=== PATIENT | female | born 1935 | race Caucasian/White ===

== ENCOUNTER 2017-04-16 10:22 | Inpatient (IN) | payer OTHER ==
[~2017-04-16] VITALS: Ht 165.1 cm; Wt 72.1 kg
--- NOTE | ~2017-04-16 | PR ---
[place], [place] [id number] #: [id number] ROOM: 510 DOCTOR: PAULINO BOONE MD BIRTHDATE: [birth year] DOS: 04/19/2017 SUBJECTIVE: The patient is doing fine. She feels much better than yesterday. PHYSICAL EXAMINATION: VITAL SIGNS: Graphic trend shows that she is afebrile, pressure is 124/55, pulse of 89, respirations 20, temperature 98.2. LUNGS: Clear. HEART: Regular. ABDOMEN: Soft. EXTREMITIES: Without any edema. She is sitting in a chair and . Other than some minimal tenderness in the sacral area she is feeling good. ASSESSMENT AND PLAN: 1. Wedge compression fractures of T12, L2; status post vertebroplasty of T12, stable and improved pain. 2. Adult failure to thrive. The patient to go to [facility] today. PAULINO BOONE MD CM:PNTRANS [phone] PAULINO BOONE MD 04/19/17 1529 interface
--- NOTE | ~2017-04-16 | PR ---
[place], [place] PROGRESS NOTE [id number] UNIT #: [id number] ROOM: 528 DOCTOR: PAULINO BOONE MD BIRTHDATE: [birth year] DOS: SUBJECTIVE: The patient is doing fine without any complaint. Denies any chest pains, palpitations, but continues to have a lot of back pain. She did not rest very well. OBJECTIVE: VITAL SIGNS: Graphic trend shows a pressure 142/72, pulse is 76, respirations 18, temperature 97.8. LUNGS: Clear. HEART: Regular. ABDOMEN: Obese. EXTREMITIES: Without any edema. BACK: Tenderness persisted on the lumbar area. MRI noted, discussed with . ASSESSMENT AND PLAN: 1. Vertebral fracture T12-L2, possible vertebroplasty. 2. Acute back pain with lumbago, patient is going to get a PT evaluation and possible placement, so social service will be consulted. Continue pain medication. PAULINO BOONE MD CM:PNTRANS [id number] PAULINO BOONE MD 04/17/17 0911 interface
--- NOTE | ~2017-04-16 | DS ---
[place], [place] DISCHARGE SUMMARY NAME: RAMSES ONEIL [facility] #: [id number] UNIT #: [id number] ROOM: 510 DOCTOR: PAULINO BOONE MD BIRTHDATE: [birth year] DOS: 04/19/2017 HOSPITAL COURSE: The patient is 82 years old, comes in with complaints of sudden onset of back pain. The patient was not sure whether she had a fall or any kind of injury, started developing some pain in the low back and continued to get worse. She does not have any urinary symptoms and neither bladder complaints or bowel complaints. She does not have any fever or chills, any chest pains or palpitations. PAST MEDICAL HISTORY: Significant for anxiety. She was seen in the Emergency Room, was admitted with diagnosis of compression fractures. After admission had an MRI, which showed vertebral wedge fracture of the T12 and L2. The patient was placed on pain medication, admitted to [facility], urine culture was done to rule out urinary tract infection. This has come back negative. did see the patient and vertebroplasty was done of T12 and she was also placed on low dose steroids for lumbar disk disease with radiculopathy. The patient's pain has improved remarkably this morning, and the patient is to be discharged to [facility]. Social service has found a bed for her at the care home, insurance has already certified her to go. DISCHARGE MEDICATIONS: [place] 5 twice a day p.r.n. for pain, [place] 500 twice a day, Lidoderm patch for local application, prednisone tapering dose, metformin 500 b.i.d., losartan 100 daily, Coreg 3.125 b.i.d., lorazepam 1 mg twice a day. The patient will need a bone density done as an outpatient. DIET: Regular. PAULINO BOONE MD CM:DISCHARG [id number] PAULINO BOONE MD 04/19/17 1528 interface
--- NOTE | ~2017-04-16 | WRIGHTHP ---
[place], [place] PATIENT HISTORY AND PHYSICAL EXAM NAME: RAMSES ONEIL [facility] #: [id number] UNIT #: [id number] ROOM: 528 DOCTOR: PAULINO BOONE MD BIRTHDATE: [birth year] DOS: HISTORY OF PRESENT ILLNESS: The patient is an 82 years old. The patient comes in with complaints of acute back pain. The patient states that she noted some pain last week and it continued to progress, so finally this morning, the pain was so severe, so she decided to call Dr. Lockhart's office, who advised her to go to the Emergency Room. She does not have any urinary symptoms, not have any fever or chills, does not have any abdominal pain, nausea, any emesis. She does not have a history of any injury. She lives at home with her son who was in his 40s. 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 PAST MEDICAL HISTORY: Significant for, 1. Type 2 diabetes mellitus, insulin dependent 2. Benign hypertension. PAST SURGICAL HISTORY: She has history of hemorrhoidectomy done in the past. MEDICATIONS: She is on Coreg, metformin, lorazepam and losartan. SOCIAL HISTORY: Nonsmoker, does not use any alcohol. She lives at home with her son. She has 6 children, 3 of the kids , multiple illnesses recently. PHYSICAL EXAMINATION: VITAL SIGNS: Graphic trend shows a pressure of 150/88, pulse of 90, respirations 18 and temperature 97.7. LUNGS: Diminished breath sounds, clear. HEART: Regular. ABDOMEN: Soft, nontender. EXTREMITIES: Without any edema. She is able to move all four extremities. Examination of the back shows some minimal tenderness across the lumbosacral area, more in the paravertebral area of L3, L4 and L5. LABORATORY DATA: White cell count 8.3, hemoglobin 13.8 and hematocrit 39.9. Comprehensive glucose 165, BUN 14 and creatinine 0.72. Electrolytes were normal. CT of the abdomen and pelvis shows lumbar disk disease, status post cholecystectomy, no aneurysm, 5 mm left renal stone. Lumbar spine x-ray shows age indeterminate T12-L2 fracture. Urinalysis 2+ bacteria, 3+ leukocyte esterase. ASSESSMENT AND PLAN: 1. Acute low back pain, lumbago, without any history of recent injury. CT of the abdomen shows lumbar disk disease with possible radiculopathy. We will go ahead and arrange for an MRI. The possibilities that the patient has compression fracture of the lumbosacral vertebrae. We will add pain medications, both p.o. as well as topical preparations. Physical therapy/occupational therapy consultation and social service for possible short term placement for correction rehabilitation. 2. Possibility of urinary tract infection. Urine culture will be sent and the patient is placed on antibiotics. 3. Type 2 diabetes mellitus, insulin dependent. Blood sugars to be checked [place], [place] PATIENT HISTORY AND PHYSICAL EXAM NAME: RAMSES ONEIL [facility] #: [id number] UNIT #: [id number] ROOM: 528 DOCTOR: PAULINO BOONE MD BIRTHDATE: [birth year] twice daily, coverage scale ordered. PAULINO BOONE MD CM:HISPHYS:PATIENT HISTORY AND PHYSICAL EXAMINATION [phone] PAULINO BOONE MD 04/16/17 1525 interface
--- NOTE | ~2017-04-16 | PR ---
[place], [place] PROGRESS NOTE [facility] [id number] UNIT #: [id number] ROOM: 510 DOCTOR: PAULINO BOONE MD BIRTHDATE: [birth year] DOS: SUBJECTIVE: The patient is not having any new complaints. She is sitting up in her chair as minimal back pain. OBJECTIVE: VITAL SIGNS: Graphic trend shows a pressure of 152/80, pulse of 85, respirations 20, temperature 98.1. LUNGS: Diminished breath sounds, clear. HEART: Regular. ABDOMEN: Soft, scaphoid. EXTREMITIES: Without any edema. Some diffuse tenderness in the low back. ASSESSMENT AND PLAN: 1. Acute wedge compression fractures of T12 and L2, status post vertebroplasty of T12. 2. Adult failure to thrive, awaiting placement to a [facility]. PT/OT evaluation is being performed. 3. Chronic degenerative disk disease with central canal stenosis of L4-L5 with some radiculopathy, would benefit from a low dose of steroids. PAULINO BOONE MD CM:PNTRANS [phone] PAULINO BOONE MD 04/18/17 1130 interface
[2017-04-16 11:24] VITALS: BP 178/82
[2017-04-16] MEDS ORDERED: CARVEDILOL3.125 MG PO (11:34)
[2017-04-16] MEDS ORDERED: COZAAR100 MG PO (11:34)
[2017-04-16] MEDS ORDERED: METFORMIN500 MG PO (11:34)
[2017-04-16] MEDS ORDERED: ATIVAN1 MG PO (11:35)
[2017-04-16 11:47] LABS: BASO % 0.2 % (0.0-1.0); EOS # 0.1 10*3/uL (0.0-0.4); EOS % 0.6 % (1.0-4.0); HEMATOCRIT 39.9 % (37.0-47.0); HEMOGLOBIN 13.8 g/dl (12.0-16.0); LYMPH # 1.4 10*3/uL (1.3-4.4); LYMPH % 16.9 % (27.0-41.0); MEAN CELL VOLUME 87.1 fl (81.0-99.0); MEAN CORPUSCULAR HGB 30.1 pg (27.0-31.0); MEAN CORPUSCULAR HGB CONC 34.6 g/dl (33.0-37.0); MEAN PLATELET VOLUME 10.3 fl (9.6-12.3); MONO # 0.5 10*3/uL (0.1-1.0); MONO % 6.4 % (3.0-9.0); NEUT # 6.2 10*3/uL (2.3-7.9); NEUT % 75.4 % (47.0-73.0); PLATELET COUNT AUTOMATED 163 10*3/uL (130-400); RED BLOOD COUNT 4.58 10*6/uL (4.10-5.10); RED CELL DISTRI WIDTH 12.6 % (0-14.5); WHITE BLOOD COUNT 8.3 10*3/uL (4.8-10.8)
[2017-04-16 11:52] VITALS: BP 150/88
[2017-04-16 11:54] LABS: INTERNATIONAL NORM RATIO 1.1 (2.0-3.5)
[2017-04-16 12:06] LABS: ALBUMIN 3.3 gm/dl (3.1-4.5); ALKALINE PHOSPHATASE 92 U/L (45-117); BUN 14 mg/dl (7-24); CHLORIDE 101 mmol/L (98-107); CPK 46 U/L (26-192); CREATININE 0.72 mg/dL (0.55-1.02); LDH 167 U/L (84-246); MAGNESIUM 2.1 mg/dL (1.5-2.1); SGOT/AST 20 IU/L (3-35); SGPT/ALT 22 U/L (12-78); SODIUM 134 mmol/L (136-145); TOTAL PROTEIN 7.1 gm/dL (6.4-8.2)
[2017-04-16 12:07] LABS: CKMB 0.6 ng/ml (0.5-3.6); TROPONIN I 0.017 ng/ml (<0.045)
[2017-04-16 13:39] LABS: BILIRUBIN NEGATIVE (NEGATIVE); BLOOD TRACE-LYSED (NEGATIVE); CLARITY SL CLOUDY (CLEAR); COLOR YELLOW (YELLOW); GLUCOSE NEGATIVE (NEGATIVE); KETONE TRACE (NEGATIVE); LEUKO ESTERASE 3+ (NEGATIVE); NITRITE NEGATIVE (NEGATIVE); UROBILINOGEN 0.2 E.U./dl (0.2-1.0)
[2017-04-16 13:47] LABS: BACTERIA 2+; EPITHELIAL CELLS 21-30; WBC 21-30 wbc/hpf (0-5)
[2017-04-16 16:40] VITALS: BP 147/73
[2017-04-16 20:50] VITALS: BP 142/72
[2017-04-17] VITALS (9 sets, daily range): BP systolic 113–171; BP diastolic 64–100
[2017-04-18] VITALS: BP 118/60
[2017-04-18 08:00] VITALS: BP 152/80
[2017-04-18 12:00] VITALS: BP 118/83
[2017-04-18 16:56] VITALS: BP 148/79
[2017-04-18 20:00] VITALS: BP 117/47
[2017-04-19] VITALS: BP 124/55
[2017-04-19 08:00] VITALS: BP 128/66
[2017-04-19] MEDS ORDERED: Lidoderm 5% Patch T (08:24)
[2017-04-19] MEDS ORDERED: PREDNISONE5 MG PO (08:24)
[2017-04-19] MEDS ORDERED: Oscal,Oyster S500 MG PO (08:24)
[2017-04-19] MEDS ORDERED: NORCO 5/325 PO (08:24)
[2017-04-19] MEDS ORDERED: ATIVAN1 MG PO (08:30)
== END 2017-04-19 12:00 | disposition other institution (70) | DRG 516 ==
LOC: ED 10:22 → EDHOLD 14:02 → 5E 14:02
PROVIDERS: Physician Assistant; ADMIT Internal Medicine
PROC: 0PU43JZ Supplement Thoracic Vertebra with Synthetic Substitute, Percutaneous Approach (ICD-10-PCS; principal; 2017-04-16)
DX: M48.54XA Collapsed vertebra, not elsewhere classified, thoracic region, initial encounter for fracture (principal); N39.0 Urinary tract infection, site not specified; E11.9 Type 2 diabetes mellitus without complications; I10 Essential (primary) hypertension; F41.9 Anxiety disorder, unspecified; M51.16 Intervertebral disc disorders with radiculopathy, lumbar region; R62.7 Adult failure to thrive; M48.06 Spinal stenosis, lumbar region; Z66 Do not resuscitate; Z51.5 Encounter for palliative care; Z79.899 Other long term (current) drug therapy; Z90.49 Acquired absence of other specified parts of digestive tract; M48.56XA Collapsed vertebra, not elsewhere classified, lumbar region, initial encounter for fracture; E66.9 Obesity, unspecified

== ENCOUNTER → 2017-05-08 | Outpatient (CLI) | payer OTHER ==
[~2017-05-08] MED LIST: ATIVAN1 MG PO; CARVEDILOL3.125 MG PO; COZAAR100 MG PO; Lidoderm 5% Patch T; METFORMIN500 MG PO; NORCO 5/325 PO; Oscal,Oyster S500 MG PO; PREDNISONE5 MG PO
== END | disposition home or self-care (01) ==
LOC: RAD 02:05
DX: M81.0 Age-related osteoporosis without current pathological fracture (principal); Z78.0 Asymptomatic menopausal state

== ENCOUNTER 2017-10-22 12:18 | Emergency (ER) | payer OTHER ==
[~2017-10-22] VITALS: Wt 68.0 kg
[2017-10-22 12:46] LABS: BASO % 0.5 % (0.0-1.0); EOS # 0.1 10*3/uL (0.0-0.4); EOS % 1.2 % (1.0-4.0); HEMATOCRIT 40.1 % (37.0-47.0); HEMOGLOBIN 13.5 g/dl (12.0-16.0); LYMPH # 1.8 10*3/uL (1.3-4.4); LYMPH % 20.9 % (27.0-41.0); MEAN CELL VOLUME 91.8 fl (81.0-99.0); MEAN CORPUSCULAR HGB 30.9 pg (27.0-31.0); MEAN CORPUSCULAR HGB CONC 33.7 g/dl (33.0-37.0); MEAN PLATELET VOLUME 10.5 fl (9.6-12.3); MONO # 0.5 10*3/uL (0.1-1.0); MONO % 5.8 % (3.0-9.0); NEUT # 6.2 10*3/uL (2.3-7.9); NEUT % 71.4 % (47.0-73.0); PLATELET COUNT AUTOMATED 166 10*3/uL (130-400); RED BLOOD COUNT 4.37 10*6/uL (4.10-5.10); RED CELL DISTRI WIDTH 12.7 % (0-14.5); WHITE BLOOD COUNT 8.7 10*3/uL (4.8-10.8)
[2017-10-22 12:58] LABS: BUN 21 mg/dl (7-24); CHLORIDE 106 mmol/L (98-107); CREATININE 0.92 mg/dL (0.55-1.02); POTASSIUM 4.3 mmol/L (3.5-5.1); SODIUM 140 mmol/L (136-145)
[2017-10-22 14:38] LABS: BILIRUBIN NEGATIVE (NEGATIVE); BLOOD TRACE-INTACT (NEGATIVE); CLARITY CLEAR (CLEAR); COLOR YELLOW (YELLOW); GLUCOSE 2+ (NEGATIVE); KETONE NEGATIVE (NEGATIVE); LEUKO ESTERASE TRACE (NEGATIVE); NITRITE NEGATIVE (NEGATIVE); PH 5.5 (5.0-9.0); SPECIFIC GRAVITY 1.015 (1.005-1.030); UROBILINOGEN 0.2 E.U./dl (0.2-1.0)
[2017-10-22 14:57] LABS: BACTERIA 1+; EPITHELIAL CELLS 20-25
== END 2017-10-22 15:26 | disposition home or self-care (01) ==
LOC: ED 12:18
PROVIDERS: Emergency Medicine
DX: R41.3 Other amnesia (principal); N39.0 Urinary tract infection, site not specified; R41.82 Altered mental status, unspecified; Z79.899 Other long term (current) drug therapy

== ENCOUNTER 2017-11-14 20:20 | Inpatient (IN) | payer OTHER ==
[~2017-11-14] VITALS: Ht 165 cm; Wt 60.6 kg
--- NOTE | ~2017-11-14 | WRIGHTHP ---
[place], [place] PATIENT HISTORY AND PHYSICAL EXAM NAME: RAMSES ONEIL [facility] #: [id number] UNIT #: [id number] ROOM: 421 DOCTOR: MIKE KINCAID MD BIRTHDATE: [birth year] DOS: 11/14/2017 HISTORY OF PRESENT ILLNESS: The patient is an 82-year-old female with a past medical history of: 1. Generalized anxiety disorder. 2. Alzheimer's type dementia. 3. Compression fractures at T12 and L2, status post vertebroplasty. 4. History of benign essential hypertension. 5. Type 2 diabetes mellitus. The patient presented to the Emergency Department with 5 days of recurrent nausea and vomiting and she was getting weaker by the day. The patient was treated as an outpatient, but she failed treatment and was admitted to the hospital for dehydration, ambulatory dysfunction, and progressive weakness. The patient was unable to eat much at home, but had no diarrhea. The patient was found to have leukocytosis on blood counts, and she was recommended for admission for failed outpatient treatment and put on a monitored floor. After admission, the patient started feeling better. Nausea and vomiting has resolved and she is starting to feel stronger. No complaints of any chest pain, shortness of breath. REVIEW OF SYSTEMS: LUNGS: No increasing shortness of breath. GASTROINTESTINAL: The patient had persistent nausea, vomiting at home. CARDIOVASCULAR: No chest pains or palpitations. FAMILY HISTORY: Noncontributory. SOCIAL HISTORY: The patient lives at home. Her family helps her. She denies smoking cigarettes, alcohol and drug abuse. PHYSICAL EXAMINATION: GENERAL APPEARANCE: The patient is alert and oriented x 3. Generalized weakness. VITAL SIGNS: Blood pressure 125/47, heart rate 74 beats per minute, breathing 20 times per minute, temperature 98.2 degrees Fahrenheit. HEENT AND NECK: Extraocular movements are intact. Sclerae are anicteric. Oral mucosa is moist and clean. No obvious facial weakness. Neck is supple without any lymphadenopathy. No thyromegaly. No JVD. No carotid arterial bruits. LUNGS: Clear to auscultation. No wheezing. No rhonchi. CARDIOVASCULAR SYSTEM: Heart rate is regular in rate and rhythm. S1 and S2 normally audible. No significant murmur or any other abnormal cardiac sounds. ABDOMEN: Soft, nontender. No obvious organomegaly. Bowel sounds are present. No obvious herniation. EXTREMITIES: Without significant cyanosis or edema. Warm to touch. CENTRAL NERVOUS SYSTEM: Alert and oriented x 3. Cranial nerves II-XII are intact. Speech is normal. The patient is able to move all extremities. Normal muscle strength. Deep tendon reflexes are equal on both sides. Plantars were downgoing. [place], [place] PATIENT HISTORY AND PHYSICAL EXAM [id number] UNIT #: [id number] ROOM: 421 DOCTOR: MIKE KINCAID MD BIRTHDATE: [birth year] LABORATORY DATA: Normal serum electrolytes now, but at admission, the patient's BUN and creatinine was elevated to 20 and 1.25. Chest x-ray without acute abnormality. White cell count of 15,500. IMPRESSION: 1. The patient with acute dehydration, hypovolemia, treated with hydration with normal saline and the patient started tolerating diet. The patient had nausea, vomiting for about 5 days at home prior to coming to the hospital. The patient's metformin has been on hold, and she was kept on a no concentrated sweet diet and she started feeling better. 2. Old age, adult failure to thrive with difficulty with walking. The patient working with physical therapy. 3. Benign essential hypertension with controlled blood pressures. 4. Generalized anxiety disorder to be followed and treated. 5. Type 2 diabetes mellitus. Blood sugars to be monitored and treated accordingly. The patient's metformin has been stopped because of dehydration and nausea and vomiting. 6. Compression fractures at T12 and L2 with chronic back pains controlled with [place]. MIKE KINCAID MD CM:HISPHYS:PATIENT HISTORY AND PHYSICAL EXAMINATION [phone] MIKE KINCAID MD 11/15/171840 interface
--- NOTE | ~2017-11-14 | DS ---
[place], [place] DISCHARGE SUMMARY NAME: RAMSES ONEIL [facility] #: [id number] UNIT #: [id number] ROOM: 421 DOCTOR: MIEK KINCAID MD BIRTHDATE: [birth year] DOS: 11/16/2017 DISCHARGE DIAGNOSES: 1. The patient with nausea, vomiting, and dehydration with hypovolemia and failed outpatient treatment, was admitted to [facility]. Her metformin was stopped, and she was hydrated with normal saline. The patient was kept on a no concentrated sweet diet when she started tolerating diet. The patient's blood sugars had normalized without metformin, so the medicine has been discontinued. 2. Old age, adult failure to thrive with difficulty with walking. The patient worked with physical therapy and she is ambulating better now and feeling stronger. 3. Benign essential hypertension with controlled blood pressures. 4. Chronic back pains with compression fractures at T12 and L2. The patient had a T12 vertebroplasty. 5. Type 2 diabetes mellitus with well controlled blood sugars now without metformin. 6. Late onset Alzheimer's type dementia and some forgetfulness, mental status is stable. 7. Generalized anxiety disorder, treated and controlled. LABORATORY DATA: The patient's lactic acid level was elevated at 3.6 at admission and BUN and creatinine elevated to 1.25 and 20, but both of them have normalized with hydration with normal saline. DISCHARGE MANAGEMENT: Losartan 100 mg a day, Coreg 3.125 mg b.i.d., omeprazole 20 mg a day, lorazepam 1 mg b.i.d. p.r.n. for anxiety, Vicodin one tablet at bedtime p.r.n. for back pains. MIKE KINCAID MD CM:DISCHARG [phone] MIKE KINCAID MD 11/16/171958 interface
[2017-11-14 20:25] VITALS: BP 189/80
[2017-11-14] MEDS ORDERED: CALCIUM + D3 E1 EACH PO (20:51)
[2017-11-14] MEDS ORDERED: MOBIC7.5 MG PO (20:51)
[2017-11-14] MEDS ORDERED: ARICEPT5 M1 PO (20:52)
[2017-11-14 20:53] LABS: BILIRUBIN NEGATIVE (NEGATIVE); BLOOD NEGATIVE (NEGATIVE); CLARITY SL CLOUDY (CLEAR); COLOR YELLOW (YELLOW); GLUCOSE NEGATIVE (NEGATIVE); KETONE NEGATIVE (NEGATIVE); LEUKO ESTERASE 1+ (NEGATIVE); NITRITE NEGATIVE (NEGATIVE); PH 7.5 (5.0-9.0); UROBILINOGEN 0.2 E.U./dl (0.2-1.0)
[2017-11-14] MEDS ORDERED: FOSAMAX70 M1 PO (20:53)
[2017-11-14 20:54] LABS: BASO % 0.1 % (0.0-1.0); EOS % 0.3 % (1.0-4.0); HEMATOCRIT 41.1 % (37.0-47.0); HEMOGLOBIN 14.3 g/dl (12.0-16.0); LYMPH # 2.1 10*3/uL (1.3-4.4); LYMPH % 13.6 % (27.0-41.0); MEAN CELL VOLUME 88.2 fl (81.0-99.0); MEAN CORPUSCULAR HGB 30.7 pg (27.0-31.0); MEAN CORPUSCULAR HGB CONC 34.8 g/dl (33.0-37.0); MEAN PLATELET VOLUME 10.6 fl (9.6-12.3); MONO % 6.7 % (3.0-9.0); NEUT # 12.2 10*3/uL (2.3-7.9); NEUT % 78.9 % (47.0-73.0); PLATELET COUNT AUTOMATED 187 10*3/uL (130-400); RED BLOOD COUNT 4.66 10*6/uL (4.10-5.10); RED CELL DISTRI WIDTH 12.2 % (0-14.5); WHITE BLOOD COUNT 15.5 10*3/uL (4.8-10.8)
[2017-11-14 21:08] LABS: BACTERIA 2+
[2017-11-14 21:09] LABS: RBC 0-2 rbc/hpf (0-2)
[2017-11-14 21:36] LABS: ACT PARTIAL THROMBO TIME 24.2 SECONDS (20.8-31.5); INTERNATIONAL NORM RATIO 1.1 (2.0-3.5)
[2017-11-14 21:42] LABS: ALBUMIN 3.5 gm/dl (3.1-4.5); ALKALINE PHOSPHATASE 46 U/L (45-117); BUN 20 mg/dl (7-24); CHLORIDE 97 mmol/L (98-107); CREATININE 1.25 mg/dL (0.55-1.02); LIPASE 135 U/L (73-393); SGOT/AST 25 IU/L (3-35); SGPT/ALT 21 U/L (12-78); SODIUM 133 mmol/L (136-145); TOTAL PROTEIN 6.6 gm/dL (6.4-8.2)
[2017-11-14 21:43] LABS: TROPONIN I < 0.015 ng/ml (<0.045)
[2017-11-14 22:18] VITALS: BP 160/71
[2017-11-14 22:24] VITALS: BP 166/80
[2017-11-14 22:46] VITALS: BP 174/54
[2017-11-14] MEDS ORDERED: MAPAP EXTRA ST500 M1 PO (23:01)
[2017-11-14] MEDS ORDERED: NORCO 5-325 TA1 EACH PO (23:04)
[2017-11-15] VITALS: BP 180/66
[2017-11-15 06:21] LABS: BUN 18 mg/dl (7-24); CHLORIDE 104 mmol/L (98-107); POTASSIUM 4.2 mmol/L (3.5-5.1); SODIUM 138 mmol/L (136-145)
[2017-11-15 08:00] VITALS: BP 150/60
[2017-11-15 12:00] VITALS: BP 146/68
[2017-11-15 16:00] VITALS: BP 125/47
[2017-11-15 20:00] VITALS: BP 134/52
[2017-11-15 20:24] VITALS: BP 161/65
[2017-11-16] VITALS: BP 131/59
[2017-11-16 08:00] VITALS: BP 164/60
[2017-11-16 12:00] VITALS: BP 156/62
[2017-11-16 16:00] VITALS: BP 147/74
== END 2017-11-16 18:30 | disposition home or self-care (01) | DRG 641 ==
LOC: ED 20:20 → 4E 22:12 → EDHOLD 22:12 → 4E 22:22
PROVIDERS: Internal Medicine; Physician Assistant
DX: E86.0 Dehydration (principal); E86.1 Hypovolemia; E87.2 Acidosis; E11.9 Type 2 diabetes mellitus without complications; G30.1 Alzheimer's disease with late onset; F02.80 Dementia in other diseases classified elsewhere, unspecified severity, without behavioral disturbance, psychotic disturbance, mood disturbance, and anxiety; D72.829 Elevated white blood cell count, unspecified; N28.9 Disorder of kidney and ureter, unspecified; K21.9 Gastro-esophageal reflux disease without esophagitis; F41.1 Generalized anxiety disorder; G89.29 Other chronic pain; I10 Essential (primary) hypertension; R62.7 Adult failure to thrive; R26.2 Difficulty in walking, not elsewhere classified; M54.9 Dorsalgia, unspecified; Z87.81 Personal history of (healed) traumatic fracture; Z90.710 Acquired absence of both cervix and uterus; Z79.899 Other long term (current) drug therapy

== ENCOUNTER 2017-11-19 16:32 | Emergency (ER) | payer OTHER ==
[~2017-11-19] VITALS: Ht 165.1 cm; Wt 66.7 kg
[~2017-11-19 16:32] MED LIST changes: +ARICEPT5 M1 PO; +CALCIUM + D3 E1 EACH PO; +FOSAMAX70 M1 PO; +MAPAP EXTRA ST500 M1 PO; +MOBIC7.5 MG PO; +NORCO 5-325 TA1 EACH PO
[2017-11-19 17:20] LABS: BASO % 0.2 % (0.0-1.0); EOS % 0.4 % (1.0-4.0); HEMATOCRIT 40.5 % (37.0-47.0); HEMOGLOBIN 13.8 g/dl (12.0-16.0); LYMPH # 1.6 10*3/uL (1.3-4.4); LYMPH % 16.7 % (27.0-41.0); MEAN CORPUSCULAR HGB 30.7 pg (27.0-31.0); MEAN CORPUSCULAR HGB CONC 34.1 g/dl (33.0-37.0); MEAN PLATELET VOLUME 10.4 fl (9.6-12.3); MONO # 0.3 10*3/uL (0.1-1.0); MONO % 3.6 % (3.0-9.0); NEUT # 7.3 10*3/uL (2.3-7.9); NEUT % 78.7 % (47.0-73.0); PLATELET COUNT AUTOMATED 157 10*3/uL (130-400); RED CELL DISTRI WIDTH 12.2 % (0-14.5); WHITE BLOOD COUNT 9.3 10*3/uL (4.8-10.8)
[2017-11-19 17:29] LABS: BILIRUBIN NEGATIVE (NEGATIVE); BLOOD NEGATIVE (NEGATIVE); CLARITY CLEAR (CLEAR); COLOR YELLOW (YELLOW); GLUCOSE TRACE (NEGATIVE); KETONE NEGATIVE (NEGATIVE); LEUKO ESTERASE NEGATIVE (NEGATIVE); NITRITE NEGATIVE (NEGATIVE); PH 6.5 (5.0-9.0); UROBILINOGEN 0.2 E.U./dl (0.2-1.0)
[2017-11-19 17:40] LABS: ALBUMIN 3.8 gm/dl (3.1-4.5); ALKALINE PHOSPHATASE 53 U/L (45-117); BUN 16 mg/dl (7-24); CHLORIDE 103 mmol/L (98-107); CREATININE 0.73 mg/dL (0.55-1.02); SGOT/AST 30 IU/L (3-35); SGPT/ALT 35 U/L (12-78); SODIUM 139 mmol/L (136-145); TOTAL PROTEIN 6.8 gm/dL (6.4-8.2)
[2017-11-19 17:43] LABS: EPITHELIAL CELLS 0-2
== END 2017-11-19 19:53 | disposition home or self-care (01) ==
LOC: ED 16:32
PROVIDERS: Nurse Practitioner Family
DX: A08.4 Viral intestinal infection, unspecified (principal); F17.200 Nicotine dependence, unspecified, uncomplicated; Z90.710 Acquired absence of both cervix and uterus; Z98.890 Other specified postprocedural states; Z79.899 Other long term (current) drug therapy

== ENCOUNTER → 2017-11-21 | Outpatient (CLI) | payer OTHER | END | disposition home or self-care (01) | LOC: LAB 10:42 | DX: R78.81 Bacteremia (principal) ==

== ENCOUNTER → 2017-12-05 | Outpatient (CLI) | payer OTHER | END | disposition home or self-care (01) | LOC: MRI 10:40 | DX: F03.90 Unspecified dementia, unspecified severity, without behavioral disturbance, psychotic disturbance, mood disturbance, and anxiety (principal) ==

== ENCOUNTER → 2020-03-25 | Outpatient (CLI) | payer OTHER | END | disposition home or self-care (01) | LOC: US 10:52 | DX: I51.7 Cardiomegaly (principal); R22.43 Localized swelling, mass and lump, lower limb, bilateral ==

== ENCOUNTER 2022-12-01 10:35 | Inpatient (IN) | payer MEDICARE ==
[~2022-12-01] VITALS: Ht 160 cm; Wt 68.7 kg
[2022-12-01 10:53] LABS: BILIRUBIN Negative (Negative); BLOOD Negative (Negative); CLARITY Clear (Clear); COLOR Yellow (Yellow); GLUCOSE Negative (Negative); KETONE Negative (Negative); LEUKO ESTERASE Trace (Negative); NITRITE Negative (Negative); SPECIFIC GRAVITY 1.015 (1.001-1.030)
[2022-12-01 10:58] LABS: BASO % 0.4 % (0.0-1.0); EOS # 0.1 10*3/uL (0.0-0.4); EOS % 1.6 % (1.0-4.0); HEMATOCRIT 43.1 % (37.0-47.0); LYMPH # 1.9 10*3/uL (1.3-4.4); LYMPH % 24.4 % (27.0-41.0); MEAN CELL VOLUME 97.5 fl (81.0-99.0); MEAN CORPUSCULAR HGB 32.6 pg (27.0-31.0); MEAN CORPUSCULAR HGB CONC 33.4 g/dl (33.0-37.0); MONO # 0.5 10*3/uL (0.1-1.0); MONO % 6.7 % (3.0-9.0); NEUT # 5.3 10*3/uL (2.3-7.9); NEUT % 66.5 % (47.0-73.0); PLATELET COUNT AUTOMATED 157 10*3/uL (130-400); RED BLOOD COUNT 4.42 10*6/uL (4.10-5.10); RED CELL DISTRI WIDTH 14.3 % (0-14.5); WHITE BLOOD COUNT 7.9 10*3/uL (4.8-10.8)
[2022-12-01 11:04] LABS: WBC 16-20 wbc/hpf (0-5)
[2022-12-01 11:15] VITALS: BP 174/59
[2022-12-01 11:16] LABS: ALKALINE PHOSPHATASE 79 U/L (46-116); BUN 14 mg/dl (9-23); CHLORIDE 106 mmol/L (98-107); LIPASE 34 U/L (12-53); POTASSIUM 3.7 mmol/L (3.4-5.1); SGPT/ALT 14 U/L (10-49); TOTAL PROTEIN 6.3 gm/dL (6.0-8.0)
[2022-12-01 11:17] LABS: ACT PARTIAL THROMBO TIME 26.9 SECONDS (20.0-32.1); INTERNATIONAL NORM RATIO 1.1 (2.0-3.5)
[2022-12-01 11:50] VITALS: BP 168/80
[2022-12-01 13:40] VITALS: BP 183/58
[2022-12-01 13:52] VITALS: BP 183/58
[2022-12-01 16:00] VITALS: BP 156/51
[2022-12-01 20:00] VITALS: BP 176/57
[2022-12-02] VITALS: BP 119/65
[2022-12-02 06:38] LABS: BASO % 0.3 % (0.0-1.0); EOS # 0.2 10*3/uL (0.0-0.4); EOS % 1.7 % (1.0-4.0); HEMATOCRIT 44.2 % (37.0-47.0); LYMPH % 22.6 % (27.0-41.0); MEAN CELL VOLUME 95.7 fl (81.0-99.0); MEAN CORPUSCULAR HGB 31.6 pg (27.0-31.0); MEAN PLATELET VOLUME 10.4 fl (9.6-12.3); MONO # 0.7 10*3/uL (0.1-1.0); MONO % 7.5 % (3.0-9.0); NEUT # 5.9 10*3/uL (2.3-7.9); NEUT % 67.4 % (47.0-73.0); PLATELET COUNT AUTOMATED 180 10*3/uL (130-400); RED BLOOD COUNT 4.62 10*6/uL (4.10-5.10); RED CELL DISTRI WIDTH 14.2 % (0-14.5); WHITE BLOOD COUNT 8.7 10*3/uL (4.8-10.8)
[2022-12-02 06:48] LABS: ACT PARTIAL THROMBO TIME 27.9 SECONDS (20.0-32.1); INTERNATIONAL NORM RATIO 1.1 (2.0-3.5)
[2022-12-02 08:00] VITALS: BP 136/61
[2022-12-02 08:23] LABS: ALKALINE PHOSPHATASE 75 U/L (46-116); BUN 11 mg/dl (9-23); CHLORIDE 107 mmol/L (98-107); FREE T4 0.91 ng/dl (0.89-1.76); POTASSIUM 3.8 mmol/L (3.4-5.1); SGPT/ALT 12 U/L (10-49); TOTAL PROTEIN 6.2 gm/dL (6.0-8.0)
[2022-12-02 08:29] LABS: VITAMIN D, 25-HYDROXY 64.1 ng/mL (30-100)
[2022-12-02 12:00] VITALS: BP 160/64
[2022-12-02 16:00] VITALS: BP 144/79
[2022-12-02 20:00] VITALS: BP 144/68
[2022-12-03] VITALS: BP 157/72
[2022-12-03 08:00] VITALS: BP 151/65
[2022-12-03] MEDS ORDERED: ASPIRIN ADULT L81 M1 PO (11:57)
[2022-12-03 12:00] VITALS: BP 134/63
== END 2022-12-03 11:40 | DRG 71 ==
LOC: ED 10:35 → EDHOLD 12:00 → 5E 12:09
PROVIDERS: Emergency Medicine; Internal Medicine; ADMIT Internal Medicine; ATTEND Internal Medicine
DX: G93.41 Metabolic encephalopathy (principal); N39.0 Urinary tract infection, site not specified; F03.90 Unspecified dementia, unspecified severity, without behavioral disturbance, psychotic disturbance, mood disturbance, and anxiety; R00.1 Bradycardia, unspecified; R26.2 Difficulty in walking, not elsewhere classified; M19.90 Unspecified osteoarthritis, unspecified site; I07.1 Rheumatic tricuspid insufficiency; I10 Essential (primary) hypertension; E11.65 Type 2 diabetes mellitus with hyperglycemia; M25.562 Pain in left knee; Z90.49 Acquired absence of other specified parts of digestive tract; Z90.710 Acquired absence of both cervix and uterus; Z79.1 Long term (current) use of non-steroidal anti-inflammatories (NSAID); Z79.899 Other long term (current) drug therapy

== ENCOUNTER 2022-12-21 08:21 | Emergency (ER) | payer MEDICARE ==
[~2022-12-21] VITALS: Ht 157.4 cm; Wt 70.3 kg
[~2022-12-21 08:21] MED LIST changes: +ASPIRIN ADULT L81 M1 PO
[2022-12-21] MEDS ORDERED: SERTRALINE HYDR25 MG PO (08:30)
[2022-12-21] MEDS ORDERED: LISINOPRIL10 M1 PO (08:33)
[2022-12-21] MEDS ORDERED: MELOXICAM7.5 MG PO (08:34)
[2022-12-21] MEDS ORDERED: TRAZODONE100 MG PO (08:34)
[2022-12-21] MEDS ORDERED: SIMVASTATIN10 MG PO (08:34)
[2022-12-21] MEDS ORDERED: ALENDRONATE SOD70 M1 PO (08:35)
[2022-12-21] MEDS ORDERED: LORAZEPAM0.5 M1 PO (08:35)
[2022-12-21] MEDS ORDERED: RIVASTIGMINE TAR6 M1 PO (08:35)
[2022-12-21] MEDS ORDERED: CARVEDILOL3.125 MG PO (08:36)
[2022-12-21 09:42] LABS: BILIRUBIN Negative (Negative); BLOOD Negative (Negative); CLARITY Clear (Clear); COLOR Yellow (Yellow); GLUCOSE Negative (Negative); KETONE Negative (Negative); LEUKO ESTERASE Negative (Negative); NITRITE Negative (Negative); PH 5.5 (4.5-8.0); UROBILINOGEN 0.2 E.U./dl (0.0-1.0)
[2022-12-21 10:06] LABS: BACTERIA 2+; CALCIUM OXALATE CRYSTALS 1+; MUCOUS TRACE
== END 2022-12-21 13:16 ==
LOC: ED 08:21
PROVIDERS: Emergency Medicine
DX: K56.41 Fecal impaction (principal); I10 Essential (primary) hypertension; E11.9 Type 2 diabetes mellitus without complications; F41.9 Anxiety disorder, unspecified; Z90.710 Acquired absence of both cervix and uterus; Z90.49 Acquired absence of other specified parts of digestive tract; Z98.890 Other specified postprocedural states; Z79.899 Other long term (current) drug therapy

== ENCOUNTER 2023-10-12 13:00 | Emergency (ER) | payer MEDICARE ==
[~2023-10-12] VITALS: Wt 77.1 kg
[~2023-10-12 13:00] MED LIST changes: +ALENDRONATE SOD70 M1 PO; +ASPIRIN ADULT L81 M2 PO; +LISINOPRIL10 M1 PO; +LORAZEPAM0.5 M1 PO; +MELOXICAM7.5 MG PO; +NAMENDA10 MG PO; +OMNICEF300 MG PO; +POTASSIUM CHLO20 ME3 PO; +RIVASTIGMINE TAR6 M1 PO; +SERTRALINE HYDR25 MG PO; +SIMVASTATIN10 MG PO; +TRAZODONE100 MG PO; +VITAMIN B1250 MCG PO; +ZOLOFT50 MG PO
[2023-10-12] MEDS ORDERED: SODIUM CHLORIDE 0.9% 1,000 ML IV ONE (13:05)
[2023-10-12 13:28] LABS: BASO % 0.6 % (0.0-1.0); EOS # 0.1 10*3/uL (0.0-0.4); EOS % 1.3 % (1.0-4.0); HEMATOCRIT 45.2 % (37.0-47.0); LYMPH # 1.5 10*3/uL (1.3-4.4); LYMPH % 24.1 % (27.0-41.0); MEAN CELL VOLUME 101.8 fl (81.0-99.0); MEAN CORPUSCULAR HGB 31.8 pg (27.0-31.0); MEAN CORPUSCULAR HGB CONC 31.2 g/dl (33.0-37.0); MEAN PLATELET VOLUME 9.6 fl (9.6-12.3); MONO # 0.3 10*3/uL (0.1-1.0); MONO % 5.5 % (3.0-9.0); NEUT # 4.2 10*3/uL (2.3-7.9); PLATELET COUNT AUTOMATED 196 10*3/uL (130-400); RED BLOOD COUNT 4.44 10*6/uL (4.10-5.10); RED CELL DISTRI WIDTH 14.5 % (0-14.5); WHITE BLOOD COUNT 6.2 10*3/uL (4.8-10.8)
[2023-10-12 13:54] LABS: ALKALINE PHOSPHATASE 66 U/L (46-116); BUN 17 mg/dl (9-23); CHLORIDE 109 mmol/L (98-107); LIPASE 23 U/L (12-53); POTASSIUM 4.4 mmol/L (3.4-5.1); SGPT/ALT 13 U/L (5-49); TOTAL PROTEIN 6.1 gm/dL (6.0-8.0)
[2023-10-12 14:10] LABS: BILIRUBIN Negative (Negative); BLOOD Negative (Negative); CLARITY Cloudy (Clear); COLOR Yellow (Yellow); GLUCOSE 1+ (Negative); KETONE Negative (Negative); LEUKO ESTERASE Trace (Negative); NITRITE Negative (Negative); SPECIFIC GRAVITY 1.025 (1.001-1.030)
[2023-10-12 14:18] LABS: URINE AMPHETAMINES Negative (1000ng/ml); URINE BARBITURATES Negative (200ng/ml); URINE BENZODIAZEPINES Negative (200ng/ml); URINE CANNABINOIDS (THC) Negative (50ng/ml); URINE COCAINE Negative (300ng/ml); URINE METHADONE Negative (300ng/ml); URINE OPIATES Negative (300ng/ml); URINE PHENCYCLIDINE Negative (25ng/ml)
[2023-10-12 14:31] LABS: BACTERIA TRACE; CALCIUM OXALATE CRYSTALS Trace; HYALINE CAST 0-2; RBC 0-2 rbc/hpf (0-2)
== END 2023-10-12 14:48 | disposition home or self-care (01) ==
LOC: ED 13:00
PROVIDERS: Emergency Medicine
DX: R53.1 Weakness (principal); Z20.822 Contact with and (suspected) exposure to COVID-19; F32.A Depression, unspecified; I10 Essential (primary) hypertension; E78.5 Hyperlipidemia, unspecified; E11.9 Type 2 diabetes mellitus without complications; F41.9 Anxiety disorder, unspecified; F03.90 Unspecified dementia, unspecified severity, without behavioral disturbance, psychotic disturbance, mood disturbance, and anxiety; Z90.49 Acquired absence of other specified parts of digestive tract; Z90.710 Acquired absence of both cervix and uterus; Z98.890 Other specified postprocedural states; Z79.899 Other long term (current) drug therapy